=== PATIENT | male | born 2000 | race Caucasian/White ===

== ENCOUNTER 2021-01-31 12:16 | Outpatient (REF) | payer MEDICAID, SELFPAY | END 2021-01-31 12:17 | disposition home or self-care (01) | LOC: HO.LAB 12:16 | PROVIDERS: Visit Provider Internal Medicine | DX: Z20.822 Contact with and (suspected) exposure to COVID-19 (principal) | CPT/HCPCS: 36415; C9803; U0003; U0005 ==

== ENCOUNTER 2021-02-21 13:47 | Outpatient (REF) | payer MEDICAID, OTHER, SELFPAY ==
[2021-02-21 14:22] LABS: COVID-19 Test Negative (Negative)
== END 2021-02-21 13:48 | disposition home or self-care (01) ==
LOC: HO.LAB 13:47
PROVIDERS: Visit Provider Internal Medicine
DX: Z20.822 Contact with and (suspected) exposure to COVID-19 (principal)
CPT/HCPCS: 36415; 87635; C9803

== ENCOUNTER 2023-03-16 08:47 | Emergency (ER) | payer MEDICAID, OTHER, SELFPAY ==
--- NOTE | ~2023-03-16 | US_ITS ---
EXAMINATION: US ABDOMEN LIMITED CLINICAL INFORMATION: Epigastric/right upper quadrant pain, nausea and vomiting. COMPARISON: None available. TECHNIQUE: Real-time imaging of the right upper quadrant abdominal viscera. FINDINGS: PANCREAS: Not seen due to bowel gas. LIVER: Normal. The liver is normal in size. The liver contour is normal. Parenchymal echogenicity is normal. No focal hepatic lesion. There is no intrahepatic biliary duct dilatation seen. GALLBLADDER: Normal. The gallbladder is physiologically distended without evidence of stones, sludge, polyps, wall thickening or pericholecystic fluid. COMMON BILE DUCT: Normal in caliber measuring 0.4 cm in diameter. RIGHT KIDNEY: Normal. No hydronephrosis. No renal calculi or focal parenchymal lesions. The kidney measures 10.5 cm in maximum dimension. FREE FLUID: None. US/US abdomen limited IMPRESSION: Pancreas not seen. Otherwise unremarkable right upper quadrant ultrasound.
[2023-03-16 09:01] VITALS: BP 144/91; PULSE 110; RESP 20; TEMP 36.8; O2SAT 97; BMI 30.4
[2023-03-16 09:21] LABS: Hemoglobin 18.1 g/dl (14.0-18.0); Mean Corpuscular HGB Conc 32.8 g/dl (31.0-36.0); Mean Corpuscular Hemoglobin 27.8 pg (27.0-33.0); Mean Corpuscular Volume 84.8 fL (80.0-98.0); Mean Platelet Volume 10.2 fL (9.4-12.4); Platelet Count 227 X10*3/uL (160-400); Red Cell Distribution Width 12.9 % (11.0-16.0); White Blood Count 11.5 X10*3/uL (4.8-10.8)
[2023-03-16 09:21] LABS: Appearance Urine Clear; Color Urine Yellow; Glucose Urine UA Negative (Negative); Leukocyte Esterase Urine Small (1+) (Negative); Nitrite Urine Negative (Negative); Specific Gravity - Urine >= 1.030 (1.005-1.025); UMIC TRIGGER UACC YES; Urine Blood Negative (Negative); Urine Ketones Trace mg/dL (Negative); Urine Protein 30 (1+) mg/dL (Neg-Trace)
[2023-03-16 09:23] LABS: Bacteria Urine None Seen (None Seen); Hyaline Casts Urine 0-2 /LPF (0-2); RBC Urine 0-2 /HPF (0-2); Squamous Epithelial Cell Urine 0-2 /HPF (0-2); UACC Culture Trigger YES
[2023-03-16 09:27] LABS: Hematocrit 55.1 % (42.0-52.0)
[2023-03-16 09:39] LABS: Alanine Aminotransferase 29 U/L (0-40); Albumin Level 4.6 g/dL (3.5-5.0); Alkaline Phosphatase 70 U/L (39-117); Anion Gap 13 (12-20); Aspartate Amino Transferase 29 U/L (5-37); Bilirubin Direct 0.3 mg/dL (0.0-0.5); Bilirubin Total 0.9 mg/dL (0.0-1.0); Blood Urea Nitrogen 17 mg/dL (9-16); Calcium 9.5 mg/dL (8.4-10.2); Carbon Dioxide 21 mmol/L (22-29); Chloride 107 mmol/L (96-108); Creatinine Clr Calc Pharmacy 139.2; Estimated Glomerular Filt Rate > 60; Glucose Random 99 mg/dL (60-115); Lipase 18 U/L (8-78); Potassium 4.4 mmol/L (3.3-5.1); Sodium 137 mmol/L (135-145); Total Protein 7.1 g/dL (6.5-8.0)
--- NOTE | 2023-03-16 10:50 | ED.NAVMDI ---
HPI - Nausea/Vomiting/Diarrhea General Chief complaint: Nausea/Vomiting/Diarrhea Stated complaint: Vomiting Time Seen by Provider: 03/16/23 09:47 Source: patient, RN notes reviewed and old records reviewed Mode of arrival: ambulatory History of Present Illness HPI Narrative: 23-year-old male with no significant past medical history presenting to the ED complaining of chills, fatigue, upper abdominal discomfort, nausea, emesis x10 episodes and diarrhea since 22:00 last night. Admits symptoms started after eating a sandwich at work. Reports decreased/inability to tolerate p.o. Denies fever, recent travel, sick contacts, dysuria/hematuria MD elicited complaint: nausea, vomiting, diarrhea and abdominal pain Related Data Previous Rx's Medication Instructions Recorded cefuroxime axetil 250 mg tablet 250 mg PO BID 7 days #14 tabs 03/16/23 ondansetron 4 mg disintegrating 4 mg PO Q8H PRN nausea and 03/16/23 tablet vomiting #10 tabs Allergies Allergy/AdvReac Type Severity Reaction Status Date / Time No Known Allergies Allergy Verified 03/16/23 09:05 Review of Systems Review of Systems: Constitutional: No Fever, + Chills, + Fatigue, No Malaise ENT/Mouth: No Ear Pain, No Nasal Congestion, No sore throat, No Rhinorrhea, No Swallowing Difficulty Eyes: No Eye Pain, No Swelling, No Redness, No Vision Changes Cardiovascular: No Chest Pain, No SOB, No Edema, No Palpitations Respiratory: No Cough, No Sputum, No Dyspnea Gastrointestinal: + Nausea, + Vomiting, + Diarrhea, No Constipation, + Abdominal pain Genitourinary: No irregular bleeding, No Dysuria, No Urinary Frequency, No Hematuria,No Flank Pain Musculoskeletal: No joint pain, No Myalgias, No Joint Swelling Skin: No Skin Lesions, No rash Neuro: No Weakness, No Numbness, No Loss of Consciousness, No Dizziness, No Headache Yes all other systems are reviewed and are negative Constitutional: Constitutional: Reports as per [facility] Past Medical History Attestation statement: The following information was validated with the patient. Social History Social History Advance Directives: No Advance Directives Information Provided: Yes Physical Exam Vital Signs: Vital Signs: Last Vital Signs Temp 98.3 F 03/16/23 09:01 Pulse 110 H 05/02/23 09:01 Resp 20 03/16/23 09:01 BP 144/91 H 03/16/23 09:01 Pulse Ox 97 03/16/23 09:01 O2 Del Method Room Air 03/16/23 09:01 BMI result Body Mass Index 30.4 Const: General: cooperative, healthy appearing, comfortable, no acute distress, alert and awake Orientation/consciousness: patient oriented x3 Limitations: no limitations HEENT: Head: Yes normal to inspection and Yes atraumatic Ears: hearing grossly normal bilaterally General nose exam: Normal external nose present Face and sinus: Yes normal facial exam Eyes: General: appearance normal, both eyes and all related structures EOM: EOMs intact bilaterally Neck: Neck: Yes normal visual inspection and Yes no meningeal signs Resp: Effort & Inspection: normal respiratory effort and no respiratory distress Auscultation: clear to auscultation bilaterally Cardio: Rate: regular rate Heart sounds: S1 normal heart sound present and S2 normal heart sound present GI: Inspection: Yes normal to inspection Palpation (GI): Soft to palpation, Tenderness to palpation present (GI) in the epigastrum and in the RUQ; with no rebound tenderness, no guarding and not rigid : General: Yes no CVA tenderness Back/Spine/Pelvis: Back: no CVA tenderness Skin: Rashes: no rashes Wounds: no wounds Neuro: General: patient oriented x3, tone normal and no meningeal signs Gait exam (Neuro): Normal gait present Extrem: General: Yes normal to inspection Course Course Course Narrative: -1057--mild leukocytosis of 11.5. Hemoconcentrated with a H&H of 18.1/55.1 likely from dehydration. Labs otherwise reassuring -UA with protein, positive leuk esterase and wbc's >> low suspicion for pyelo, will give p.o. Ceftin 1200--US abdomen limited IMPRESSION: Pancreas not seen. Otherwise unremarkable right upper quadrant ultrasound. >> patient tolerating p.o. in the ED without nausea or vomiting Results discussed with patient including worrisome signs and symptoms and strict return precautions, and when to return to the emergency department. They verbalized understanding and feel safe for discharge at this time. Medications Administered Discontinued Medications Generic Name Dose Route Start Last Admin Trade Name Freq PRN Reason Stop Dose Admin Cefuroxime Axetil 250 mg 03/16/23 10:59 03/16/23 11:31 Cefuroxime Axetil 250 Mg Tablet PO 03/16/23 11:00 250 mg ONCE ONE Administration Famotidine 20 mg 03/16/23 10:11 03/16/23 11:38 Famotidine/Pf 20 Mg/2 Ml Vial IVPUSH 03/16/23 10:12 20 mg ONCE ONE Administration Sodium Chloride 1,000 mls @ 999 mls/hr 03/16/23 10:15 03/16/23 11:20 Ns IV 03/16/23 11:15 999 mls/hr .Q1H1M TONY Administration Ondansetron HCl 4 mg 03/16/23 10:11 03/16/23 11:39 Ondansetron Hcl 4 Mg/2 Ml Vial IVPUSH 03/16/23 10:12 4 mg ONCE ONE Administration Medical Decision Making Medical Decision Making MDM Narrative: 23-year-old male with no significant past medical history presenting to the ED complaining of chills, fatigue, upper abdominal discomfort, nausea, emesis x10 episodes and diarrhea since 22:00 last night. On exam mildly tachycardic likely from vomiting/dehydration, NAD, nontoxic appearing, abdomen soft with epigastric/RUQ tenderness, no rebound or guarding, no CVAT. Concern for food poisoning vs gastroenteritis vs cholecystitis/lithiasis vs pancreatitis vs dehydration/metabolic abnormalities Plan: Labs, UA, abdomen ultrasound, IVF, symptomatic treatment, p.o. challenge Please refer to course for remaining clinical decision making, interpretation of labs/imaging results, and discussions with consultants and/or family members. Differential Diagnosis Differential Diagnoses: The differential diagnosis associated with the presentation includes As above Admission/Observation Consideration of admission/observation: Escalation of care including admission/observation considered Lab Data [facility] Lab Attestation statement: I reviewed the patient's lab results. 03/16/23 09:11 03/16/23 09:11 Labs: Lab Results 03/16/23 03/16/23 03/16/23 Range/Units 09:11 09:11 09:15 WBC 11.5 H (4.8-10.8) X10*3/uL RBC 6.50 H (4.60-5.80) X10*6/uL Hgb 18.1 H (14.0-18.0) g/dl Hct 55.1 H (42.0-52.0) % MCV 84.8 (80.0-98.0) fL MCH 27.8 (27.0-33.0) pg MCHC 32.8 (31.0-36.0) g/dl RDW 12.9 (11.0-16.0) % Plt Count 227 (160-400) X10*3/uL MPV 10.2 (9.4-12.4) fL Absolute Nucleated RBC 0.000 (0.0-0.012) X10*3/uL Nucleated RBC % (auto) 0.0 (0.0-0.2) /100WBC Sodium 137 (135-145) mmol/L Potassium 4.4 (3.3-5.1) mmol/L Chloride 107 (96-108) mmol/L Carbon Dioxide 21 L (22-29) mmol/L Anion Gap 13 (12-20) BUN 17 H (9-16) mg/dL Creatinine 0.91 (0.5-1.4) mg/dL Estim Creat Clear Calc 139.2 Estimated GFR > 60 Random Glucose 99 (60-115) mg/dL Calcium 9.5 (8.4-10.2) mg/dL Total Bilirubin 0.9 (0.0-1.0) mg/dL Direct Bilirubin 0.3 (0.0-0.5) mg/dL AST 29 (5-37) U/L ALT 29 (0-40) U/L Alkaline Phosphatase 70 (39-117) U/L Total Protein 7.1 (6.5-8.0) g/dL Albumin 4.6 (3.5-5.0) g/dL Lipase 18 (8-78) U/L Urine Color Yellow Urine Appearance Clear Urine pH 6.0 (5.0-9.0) Ur Specific Epps >= 1.030 H (1.005-1.025) Urine Protein 30 (1+) H (Neg-Trace) mg/dL Urine Glucose (UA) Negative (Negative) mg/dL Urine Ketones Trace (Negative) mg/dL Urine Blood Negative (Negative) Urine Nitrite Negative (Negative) Ur Leukocyte Esterase Small (1+) H (Negative) Urine RBC 0-2 (0-2) /HPF Urine WBC 11-20 H (0-5) /HPF Ur Squamous Epith Cells 0-2 (0-2) /HPF Urine Bacteria None Seen (None Seen) Hyaline Casts 0-2 (0-2) /LPF Radiology Impression Discussion of test interpretation with radiology: I have reviewed the radiologist's reading. External Record Review External record reviewed: Inpatient record, Office record, Outpatient record, Prior outpatient labs, Prior outpatient radiology, Primary care record and Outside ED record Discharge Plan Discharge Clinical Impression: Gastroenteritis, Acute UTI Patient Disposition: Home, Self-Care Instructions: Urinary Tract Infection in Men (DC), Gastroenteritis (DC) Additional Instructions: You have a urinary tract infection. Ceftin is an antibiotic please take as prescribed Your blood work showed that you are dehydrated. your ultrasound was otherwise unremarkable Zofran as for nausea, take as needed Please follow-up with her doctor Practice of bland diet If you are unable to eat or drink, persistent nausea/vomiting or fever return to the emergency department Tienes payton infecci?n del tracto urinario. Ceftin es un antibi?pita, t?goldstein seg?n lo prescrito. Gallagher an?lisis de ajith mostr? que est? deshidratado. gallagher ultrasonido fue de otra manera normal Zofran en cuanto a las n?useas, veda seg?n sea necesario Por favor, juventino un seguimiento con gallagher m?dico. Pr?ctica de la dieta blanda Si no puede comer ni beber, n?useas/v?mitos persistentes o fiebre, regrese al departamento de emergencias. Prescriptions: New cefuroxime axetil 250 mg tablet 250 mg PO BID 7 Days Qty: 14 0RF ondansetron 4 mg tablet,disintegrating 4 mg PO Q8H PRN (Reason: nausea and vomiting) Qty: 10 0RF Referrals: [facility] [place] [facility]] [facility] [place] [facility]] [facility] [place] [facility] [Provider Group] Physician,None [Primary Care Provider] - Interventions: ED Discharge Assessment Last Done: 03/16/23 12:40 Discharge Date/Time: 03/16/23 12:40 Print Language: Estonian
[2023-03-16] MEDS: 0.9 % Sodium Chloride 1,000 ML 999 ML IV (11:20)
--- NOTE | 2023-03-16 11:33 | PC.NURSE ---
patient medicated with ceftin 250 mg per MAR. patient resting comfortably.
[2023-03-16] MEDS: Famotidine/PF 20 MG/2 ML VIAL IVPUSH (11:38)
[2023-03-16] MEDS: ondansetron HCL 4 MG/2 ML VIAL IVPUSH (11:39)
--- NOTE | 2023-03-16 12:23 | PC.NURSE ---
pt medicated per MAR, 1L NS infusing per order via 20G IV -pt awaiting US reslt, currently being PO challenge with gingerale and saltines, WCTM
== END 2023-03-16 12:40 | disposition home or self-care (01) ==
PROVIDERS: Emergency Provider Emergency Medicine
DX: K52.9 Noninfective gastroenteritis and colitis, unspecified (principal); N39.0 Urinary tract infection, site not specified; Z79.899 Other long term (current) drug therapy
CPT/HCPCS: 36415; 76705; 80048; 80076; 81001; 83690; 85027; 87086; 96374; 96375; 99283; 99284; J2405

== ENCOUNTER 2023-09-01 16:22 | Emergency (ER) | payer MEDICAID, OTHER, SELFPAY ==
[2023-09-01 16:32] VITALS: BP 116/62; PULSE 78; RESP 18; TEMP 36.6; O2SAT 97; BMI 25.8
--- NOTE | 2023-09-01 16:32 | ED_ITS ---
HPI - General Adult General Chief complaint: Skin/Abscess/Foreign Body Stated complaint: lump on R side ribcage, bothersome Time Seen by Provider: 09/01/23 16:39 Source: patient and full time staff interpreter Mode of arrival: ambulatory Limitations: no limitations History of Present Illness HPI narrative: 23 yo male presents to the ER for evaluation of a painful pea sized lump on the right side of his ribcage that he noticed 4-5 days ago. He states it is bothersome when he touches it. No overlying redness. No injury, trauma, SOB. MD complaint: lump on chest wall Onset (ago): day(s) Location: chest Radiation: non-radiation Severity: mild Severity scale (1-10): 3 Quality: aching Pain Consistency: intermittent Exacerbating factors: other (palpation) Associated symptoms: denies other symptoms Treatments prior to arrival: none Related Data Previous Rx's Medication Instructions Recorded cefuroxime axetil 250 mg tablet 250 mg PO BID 7 days #14 tabs 03/16/23 ondansetron 4 mg disintegrating 4 mg PO Q8H PRN nausea and 03/16/23 tablet vomiting #10 tabs Allergies Allergy/AdvReac Type Severity Reaction Status Date / Time No Known Allergies Allergy Verified 03/16/23 09:05 Review of Systems Review of Systems: Yes all other systems are reviewed and are negative [facility] Social History Social History Advance Directives: No Advance Directives Information Provided: No Physical Exam ED Vital Signs: Vital Signs - 24 hr 09/01/23 16:32 Temperature 97.9 F Pulse Rate 78 Respiratory Rate 18 Blood Pressure 116/62 Pulse Oximetry 97 Oxygen Delivery Method Room Air BMI result Body Mass Index 25.8 Appearance: Alert. Oriented X3. No acute distress. HEENT: normal inspection CVS: Normal heart rate and rhythm. Pulses normal. Respiratory: No respiratory distress. right lateral chest wall with a <1cm mobile lesion felt under the skin. no overylying erythema, warmth, fluctuance or induration Skin: Skin warm and dry. Normal skin color. Extremities: normal inspection x4 Neuro: Oriented X 3. grossly normal, non-focal Course Course Course Narrative: RME - 23 yo male presenting to the ER Medical Decision Making Medical Decision Making MDM Narrative: 23 yo male presenting for evaluation of a pea size mobile mass on his right chest wall. exam is c/w a soft tissue lesion, most likely a lipoma vs cyst. no evidence of infection. no role for imaging today patient counseled and will provide derm referral if he wishes to proceed with possible excision. all questions answered w/ staff air defense officer Differential Diagnosis Differential Diagnoses: The differential diagnosis associated with the presentation includes lipoma, abscess, soft tissue mass, scar tissue Tests considered The following testing was considered but not selected: considered cxr, not a bony lesion, superficial skin lesion, xr not indicated Prescription Management I considered prescription management with: Antibiotic (however not c/w infection) Critical Care Time Critical Care Time Critical Care Time: No Discharge Plan Discharge Clinical Impression: Lipoma Qualifiers: Lipoma location: trunk Qualified Code(s): D17.1 - Benign lipomatous neoplasm of skin and subcutaneous tissue of trunk Patient Disposition: Home, Self-Care Instructions: Lipoma (ED) Additional Instructions: Recommend following up with Dermatology for further evaluation and treatment Call for an appointment [facility] [address] [place] [address] Prescriptions: No Action cefuroxime axetil 250 mg tablet 250 mg PO BID 7 Days Qty: 14 0RF ondansetron 4 mg tablet,disintegrating 4 mg PO Q8H PRN (Reason: nausea and vomiting) Qty: 10 0RF
== END 2023-09-01 16:42 | disposition home or self-care (01) ==
PROVIDERS: Emergency Provider Emergency Medicine
DX: D17.1 Benign lipomatous neoplasm of skin and subcutaneous tissue of trunk (principal); R07.81 Pleurodynia
CPT/HCPCS: 99282